=== PATIENT | female | born 2000 | race Caucasian/White ===

== ENCOUNTER 2025-03-12 10:31 | Emergency (ER) | payer OTHER, SELFPAY ==
[2025-03-12 10:42] VITALS: BP 132/77; PULSE 84; RESP 16; TEMP 36.7; O2SAT 99; BMI 30.4
--- NOTE | 2025-03-12 10:50 | DI.RAD.S_ITS ---
PROCEDURE: XR FOOT RT MIN 3V INDICATIONS: fall with right foot swelling and last three toe numbness TECHNIQUE: 3 views of the foot were acquired. COMPARISON: None. FINDINGS: Bones: No fractures or dislocations. No suspicious bony lesions. Orthopedic fixation of prior healed talar fracture as well as cortical sideplate and screws involve fixating a prior healed medial malleolar fractures noted. Soft tissues: No tibiotalar joint effusion. Achilles tendon appears normal. IMPRESSION: No acute fracture. Orthopedic hardware. Approved by: Audie Ahmadi M.D. on 03/12/2025 at 11:04
--- NOTE | 2025-03-12 12:58 | PC.NURSE ---
It was reported that the patient told registration that she was going across the street to eat something and that she would be gone for 30 minutes.
--- NOTE | 2025-03-12 13:07 | PC.NURSE ---
patient called in the ED waiting area to bring back to a room with no answer.
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
--- NOTE | 2025-03-12 14:43 | DI.RAD.S_ITS ---
PROCEDURE: XR ANKLE RT MIN 3V INDICATIONS: swelling pain TECHNIQUE: 3 views of the ankle were acquired. COMPARISON: None. FINDINGS: Bones: No fractures or dislocations. Ankle mortise is normally aligned. No suspicious bony lesions. Healed instrumented medial malleolar and talar fracture. No hardware failure. Soft tissues: No tibiotalar joint effusion. Achilles tendon appears normal. IMPRESSION: No acute bony abnormality or significant effusion. Old healed instrumented medial malleolar and talar fractures Approved by: Audie Ahmadi M.D. on 03/12/2025 at 14:50
[2025-03-12] MEDS: MELOXICAM 7.5 MG TABLET PO (14:58)
[2025-03-12] MEDS: ACETAMINOPHEN 325 MG TABLET 975 MG PO (14:58)
[2025-03-12 16:34] VITALS: BP 133/80; PULSE 86; RESP 16; O2SAT 99
== END 2025-03-12 16:34 | disposition home or self-care (01) ==
PROVIDERS: Emergency Provider Physician Assistant
DX: S93.401A Sprain of unspecified ligament of right ankle, initial encounter (principal); W01.0XXA Fall on same level from slipping, tripping and stumbling without subsequent striking against object, initial encounter
CPT/HCPCS: 73610; 73630; 99283